=== PATIENT | female | born 1990 | race Two or more races ===

== ENCOUNTER 2020-05-26 18:19 | Emergency (ER) | payer MEDICAID, OTHER ==
[~2020-05-26] VITALS: Ht 162.6 cm; Wt 68.0 kg
[2020-05-26 18:35] VITALS: BP 119/67
== END 2020-05-26 20:20 | disposition home or self-care (01) ==
LOC: ER 18:19
DX: H10.33 Unspecified acute conjunctivitis, bilateral (principal)